=== PATIENT | female | born 1990 | race Caucasian/White ===

== ENCOUNTER 2017-01-12 13:16 | Inpatient (IN) | payer BC ==
[2017-01-12] MEDS ORDERED: LIDOCAINE HCL 50 ML VIAL PERI PRN (13:40)
[2017-01-12] MEDS ORDERED: OXYTOCIN/DEXTROSE 5%-WATER 30 UNITS/500 ML BAG IV ONE ×2 (13:40→15:41)
[2017-01-12] MEDS ORDERED: BUTORPHANOL TARTRATE 2 MG/ML VIAL IV PRN (13:40)
[2017-01-12] MEDS ORDERED: ONDANSETRON HCL/PF 2 MG/ML VIAL IV PRN (13:40)
[2017-01-12] MEDS ORDERED: oxyCODONE HCL/ACETAMINOPHEN 1 TAB TABLET PO PRN ×2 (15:41)
[2017-01-12] MEDS ORDERED: HYDROCORTISONE 30 APPL TUBE TP PRN (15:41)
[2017-01-12] MEDS ORDERED: BENZOCAINE/MENTHOL 81 SPRAY CAN TP PRN (15:41)
[2017-01-12] MEDS ORDERED: GLYCERIN/WITCH HAZEL LEAF 40 APPL BOX TP PRN (15:41)
[2017-01-12] MEDS ORDERED: BISACODYL 10 MG SUPP.RECT RC PRN (15:41)
[2017-01-12] MEDS ORDERED: SENNOSIDES 8.6 MG TABLET PO PRN (15:41)
--- NOTE | 2017-01-12 15:45 | OR ---
Operative Report - Dictated Report Narrative: Spontaneous Vaginal Delivery Viable female with APGARS of 8 at 1 min and 9 at 5 min. she delivered at 1528. Presentation was YORDAN. A loose nuchal cord was noted and reduced over the baby' s head prior to delivery of the anterior and posterior shoulders. She delivered over 2-1/2 contractions. Baby was placed on maternal abdomen and dried and stimulated. The cord was clamped and cut after approximately 60 seconds. Weight: 8 pounds 3.9 ounces or 3742 g Placenta was delivered spontaneously and intact. No lacerations were noted. Estimated blood loss: 50 ml Mother and baby tolerated delivery well. History for Definition: * The number of deliveries resulting in a live the patient experienced prior to current hospitalization * The previous delivery of live twins or any live multiple gestation is considered one live event. *If primagravida or nulliparous is documented select zero for the number of previous live births. Live Events: 1
[2017-01-12] MEDS: DOCUSATE SODIUM 100 MG CAPSULE PO SCH (20:51)
[2017-01-12] MEDS: IBUPROFEN 800 MG TABLET PO PRN (22:35)
[2017-01-13] MEDS: DOCUSATE SODIUM 100 MG CAPSULE PO SCH ×2 (09:08→23:12)
[2017-01-13] MEDS: IBUPROFEN 800 MG TABLET PO PRN ×2 (09:08→16:26)
--- NOTE | 2017-01-13 10:53 | PN ---
Progess Note - Interim Narrative: 01/13/17 10:52 progress note Subjective: The patient is doing well. She is ambulating, voiding, tolerating by mouth. She has minimal pain and moderate lochia. Objective: General: No acute distress Abdomen: Soft, nontender, fundus is firm just below the umbilicus Extremities: minimal edema, nontender to palpation Assessment and plan: day 1 Feeding: Breast Pain: Controlled with by mouth medication Routine care.
[2017-01-14] MEDS: IBUPROFEN 800 MG TABLET PO PRN (07:05)
[2017-01-14 07:20] VITALS: BP 108/70
--- NOTE | 2017-01-14 09:11 | PN ---
Progess Note - Interim Narrative: 01/14/17 09:11 progress note Subjective: The patient is doing well. She is ambulating, voiding, tolerating by mouth. She has minimal pain and moderate lochia. Objective: General: No acute distress Abdomen: Soft, nontender, fundus is firm just below the umbilicus Extremities: minimal edema, nontender to palpation Assessment and plan: day 2 Feeding: Breast Pain: Controlled with by mouth medication control: pills Routine care.
[2017-01-14] MEDS: DOCUSATE SODIUM 100 MG CAPSULE PO SCH (09:23)
== END 2017-01-14 11:56 | disposition home or self-care (01) | DRG 774 ==
LOC: OB 13:16
PROVIDERS: ADMIT Obstetrics & Gynecology Gynecologic Oncology; ATTEND Obstetrics & Gynecology Gynecologic Oncology
PROC: 10E0XZZ Delivery of Products of Conception, External Approach (ICD-10-PCS; principal; 2017-01-12)
PROC: 4A1HXCZ Monitoring of Products of Conception, Cardiac Rate, External Approach (ICD-10-PCS; 2017-01-12)
DX: O69.81X0 Labor and delivery complicated by cord around neck, without compression, not applicable or unspecified (principal); O98.32 Other infections with a predominantly sexual mode of transmission complicating childbirth; A60.04 Herpesviral vulvovaginitis; Z79.899 Other long term (current) drug therapy; Z3A.40 40 weeks gestation of pregnancy; Z37.0 Single live birth

== ENCOUNTER 2018-09-28 14:20 | Inpatient (IN) ==
[2018-09-28] MEDS ORDERED: LIDOCAINE HCL 50 ML VIAL PERI PRN (14:48)
[2018-09-28] MEDS ORDERED: RINGER'S SOLUTION,LACTATED 1,000 ML IV PRN (14:48)
[2018-09-28] MEDS ORDERED: OXYTOCIN/DEXTROSE 5%-WATER 30 UNITS/500 ML BAG IV ONE ×2 (14:48→22:31)
[2018-09-28] MEDS ORDERED: RINGER'S SOLUTION,LACTATED 1,000 ML IV ONE (14:48)
[2018-09-28] MEDS ORDERED: ONDANSETRON 4 MG TAB.RAPDIS PO PRN (14:48)
[2018-09-28] MEDS ORDERED: NALBUPHINE HCL 10 MG/ML AMPUL IV PRN ×2 (14:48)
--- NOTE | 2018-09-28 16:16 | HP ---
Chief Complaint - Chief Complaint Date of Service: 09/28/18 Time of Service: 15:46 Chief Complaint: Induction of labor Medical History (Updated 09/28/18 @ 16:16 by Leann España MD) Abnormal Pap smear of cervix Onset Date: ~2009 Genital herpes Onset Date: ~08/03/12 Surgical History: Surgical History (Updated 09/28/18 @ 16:16 by Leann España MD) H/O eye surgery Onset Date: ~1998 eyelid-1998, 2000, 11/2012 History of wisdom tooth extraction Hx of cholecystectomy Onset Date: ~2012 Family History: Family History (Updated 03/22/18 @ 13:16 by Bunny Orr RN) Mother Cancer Father Asthma Social History: (Last Reviewed 09/28/18 @ 16:48 by Leann España MD) Social History: Marital status: household members: spouse, children current occupational status: employed current occupation: clerical Highest education level completed: Associate degree: academi Service: No Tobacco: Smoking Status: Never smoker Alcohol: alcohol intake: former alcohol intake frequency: a few times a week details: stopped with Substance Use: substance use type: does not use Dietary Habits: caffeine: Yes caffeine comment: 2 Type: coffee Review Of Systems (GEN) - Review of Systems Generalized/Overall Review: Present: No Symptoms Reported Misc: All systems neg except as marked Allergies/Adverse Reactions: Allergies Allergy/AdvReac Type Severity Reaction Status Date / Time No Known Allergies Allergy Verified 09/28/18 14:51 Home Medications: HOME MEDICATIONS Vits96/Iron Fum/Folic [ S] 1 tab PO DAILY 03/16/15 [Last Taken 01/12/17] docusate sodium 50 mg/5 mL oral liquid 40 mg PO DAILY 08/18/18 [Last Taken Unknown] valacyclovir 1 gram tablet 1,000 mg PO DAILY 30 Days #30 tab 08/18/18 [Last Taken Unknown] Exam - Exam Vital Signs: 37.1 C 122/77 80 18 Constitutional: Present: Alert, Oriented x3, Cooperative, No distress Respiratory: Present: lungs clear, normal breath sounds Cardiovascular/Chest: Present: regular rate, rhythm, no murmur Abdomen: Present: soft, nontender, nondistended /Rectal: Present: Other - cvx 3/50/-2 Extremity: Present: non-tender, no calf tenderness Skin Exam: Present: normal color, warm/dry, no cyanosis Appearance: Present: appropriate appearance Eye contact: Present: cooperative Thoughts: Present: normal thought pattern Assessment/Plan - Narrative Narrative: 28 year old @ 40w 0d 1. Medical IOL due to patient at due date: AROM for IOL. Await onset of regular ctx. If ctx do not start will start pitocin 2. GBS negative: prophylaxis not indicated 3. History of HSV: on HSV prophylaxis
--- NOTE | 2018-09-28 17:10 | PN ---
Progess Note - Interim Date: 09/28/18 Time: 17:09 Narrative: 09/28/18 17:09 Pitocin will be started for labor induction
[2018-09-28 17:34] LABS: Cocaine Ur Negative (NEGATIVE); Urine Barbiturate Negative (NEGATIVE); Urine Benzodiazepines Negative (NEGATIVE); Urine Opiates Negative (NEGATIVE); Urine PCP Negative (NEGATIVE); Urine THC Negative (NEGATIVE)
[2018-09-28] MEDS ORDERED: diphenhydrAMINE HCL 25 MG CAPSULE PO PRN (22:31)
[2018-09-28] MEDS ORDERED: GLYCERIN/WITCH HAZEL LEAF 40 APPL BOX TP PRN (22:31)
[2018-09-28] MEDS ORDERED: SENNOSIDES 8.6 MG TABLET PO PRN (22:31)
[2018-09-28] MEDS ORDERED: BENZOCAINE/MENTHOL 81 SPRAY CAN TP PRN (22:31)
[2018-09-28] MEDS ORDERED: HYDROCORTISONE 30 APPL TUBE TP PRN (22:31)
[2018-09-28] MEDS ORDERED: HYDROcodone/ACETAMINOPHEN 1 EACH TABLET PO PRN ×2 (22:31)
[2018-09-28] MEDS ORDERED: BISACODYL 10 MG SUPP.RECT RC PRN (22:31)
--- NOTE | 2018-09-28 22:31 | OR ---
Operative Report - Dictated Report Narrative: Date of delivery: 09/28/2018 Time of delivery: 0 Gender: male weight: 3340 grams APGARS: 9/10 Procedure: Description of the procedure: The patient is a 28 year old @ 40w 0d who presented for a medical induction of labor at her due date. She had AROM followed by pitocin administration and progressed to complete dilation. She delivered a viable male infant in MARGARET presentation. The shoulders delivered followed by the rest of the . The cord was clamped and cut and the infant was placed on the maternal abdomen. The placenta was delivered by expression and appeared intact. There were no lacerations. EBL: 250 mL Complications: none Specimen: none History for MU Definition: * The number of deliveries resulting in a live the patient experienced prior to current hospitalization * The previous delivery of live twins or any live multiple gestation is considered one live event. *If primagravida or nulliparous is documented select zero for the number of previous live births. Live Events: 2
[2018-09-29] MEDS: IBUPROFEN 800 MG TABLET PO PRN ×4 (01:39→23:59)
--- NOTE | 2018-09-29 07:59 | PN ---
Subjective - Date and Time Seen Date: 09/29/18 Time: 07:58 Subjective Narrative: Patient without complaints Objective Objective Narrative: See vital signs - Review of Systems Generalized/Overall Review: Reports: No Symptoms Reported Misc: All systems neg except as marked - Vitals Vitals: Last Vital Signs Pulse 66 09/29/18 03:00 Resp 18 09/29/18 03:00 BP 119/65 09/29/18 03:00 Pulse Ox 96 09/29/18 03:00 - Exam Constitutional: Present: Alert, Oriented x3, Cooperative, No distress Abdomen: Present: soft, nontender, nondistended - fundus is firm Extremity: Present: non-tender, no calf tenderness Skin Exam: Present: normal color, warm/dry, no cyanosis Appearance: Present: appropriate appearance Eye contact: Present: cooperative Thoughts: Present: normal thought pattern Assessment/Plan Plan Narrative: PPD 1 s/p Doing well Discharge tomorrow
[2018-09-29] MEDS: DOCUSATE SODIUM 100 MG CAPSULE PO SCH (08:18)
[2018-09-29] MEDS: PRENATAL VITS96/IRON FUM/FOLIC 1 TAB TABLET PO SCH (08:18)
[2018-09-30] MEDS: DOCUSATE SODIUM 100 MG CAPSULE PO SCH ×2 (01:05→07:24)
[2018-09-30] MEDS: PRENATAL VITS96/IRON FUM/FOLIC 1 TAB TABLET PO SCH (07:24)
[2018-09-30] MEDS: IBUPROFEN 800 MG TABLET PO PRN ×2 (07:25→15:20)
--- NOTE | 2018-09-30 07:48 | PN ---
Subjective - Date and Time Seen Date: 09/30/18 Time: 07:47 Subjective Narrative: Patient without complaints Objective Objective Narrative: See vital signs - Review of Systems Generalized/Overall Review: Reports: No Symptoms Reported Misc: All systems neg except as marked - Vitals Vitals: Last Vital Signs Temp 37.2 C 09/29/18 14:00 Pulse 71 09/29/18 19:10 Resp 16 09/29/18 19:10 BP 125/69 09/29/18 19:10 Pulse Ox 97 09/29/18 19:10 - Exam Constitutional: Present: Alert, Oriented x3, Cooperative, No distress Abdomen: Present: soft, nontender, nondistended - fundus is firm Extremity: Present: non-tender, no calf tenderness Skin Exam: Present: normal color, warm/dry, no cyanosis Appearance: Present: appropriate appearance Eye contact: Present: cooperative Thoughts: Present: normal thought pattern Assessment/Plan Plan Narrative: PPD 2 s/p Doing well Discharge today Follow-up in 4 weeks
[2018-09-30 14:58] VITALS: BP 115/66
== END 2018-09-30 15:35 | disposition home or self-care (01) | DRG 807 ==
LOC: OB 14:20
PROVIDERS: ADMIT Obstetrics & Gynecology; ATTEND Obstetrics & Gynecology
CPT/HCPCS: 59025; 80307; 86850